=== PATIENT | male | born 1970 | race African-American/Black ===

== ENCOUNTER 2025-07-01 15:45 | Emergency (ER) | payer BC ==
[2025-07-01] MEDS ORDERED: Ketorolac Tromethamine 30 MG (1 mL) VIAL ONE (16:25)
== END 2025-07-01 17:33 | disposition home or self-care (01) ==
LOC: CSHERS 15:45
DX: G89.29 Other chronic pain (principal); M25.572 Pain in left ankle and joints of left foot; R93.7 Abnormal findings on diagnostic imaging of other parts of musculoskeletal system
CPT/HCPCS: 96372; 99283; J1885